=== PATIENT | female | born 2000 | race Caucasian/White ===

== ENCOUNTER 2024-01-07 19:21 | Inpatient (IN) | payer MEDICAID ==
[~2024-01-07] VITALS: Ht 157.5 cm; Wt 51.7 kg
[2024-01-07 19:40] VITALS: BP_SYST 135; PULSE 130; RESP 16; TEMP 97.8; O2SAT 99
[2024-01-07] MEDS: NACL 0.9% 2,000 ML IV ONE (20:15)
[2024-01-07 20:53] LABS: BASOPHILS # (AUTO) 0.1 K/uL (0.0-0.2); BASOPHILS % (AUTO) 0.6 % (0.0-2.0); EOSINOPHILS % (AUTO) 0.2 % (0.0-4.0); HEMATOCRIT 39.6 % (36-48); HEMOGLOBIN 13.9 g/dL (12.0-16.0); LYMPHOCYTES # (AUTO) 1.3 K/uL (1.0-5.5); LYMPHOCYTES % (AUTO) 15.6 % (20.5-51.5); MEAN CORPUSCULAR HEMOGLOBIN 31 pg (27-31); MEAN CORPUSCULAR HGB CONC 35 % (32-36); MEAN CORPUSCULAR VOLUME 87 fL (79.0-98.0); MONOCYTES # (AUTO) 0.9 K/uL (0.0-1.0); MONOCYTES % (AUTO) 11.3 % (1.7-9.3); NEUTROPHILS % (AUTO) 72.3 % (40.0-70.0); PLATELET COUNT (AUTO) 343 K/uL (130-430); RED BLOOD CELL COUNT(AUTO) 4.55 MIL/uL (4.2-6.2); RED CELL DISTRIBUTION WIDTH 12.1 % (9.0-15.0); WHITE BLOOD COUNT (AUTO) 8.3 K/uL (4.8-10.8)
[2024-01-07 21:01] LABS: ALANINE AMINOTRANSFERASE 15 U/L (12-78); ALBUMIN 4.3 g/dL (3.4-4.8); ANION GAP 14 (5-15); ASPARTATE AMINOTRANSFERASE 23 U/L (10-37); CALCIUM 8.9 mg/dL (8.4-11.0); CARBON DIOXIDE 23 mmol/L (23-29); CHLORIDE 106 mmol/L (98-107); CREATININE 0.67 mg/dL (0.55-1.30); GFR AFRICAN AMERICAN 139 mL/min (>90); GFR NON AFRICAN-AMERICAN 115 mL/min (>90); GLUCOSE 100 mg/dL (74-106); POTASSIUM 3.8 mmol/L (3.5-5.1); SODIUM SERUM 143 mmol/L (136-145); TOTAL BILIRUBIN 0.6 mg/dL (0.0-1.0); TOTAL PROTEIN, SERUM 7.9 g/dL (6.4-8.3); UREA NITROGEN, BLOOD 14 mg/dL (8-21)
[2024-01-07 21:06] LABS: ACETAMINOPHEN < 1 ug/mL (1-30); BILIRUBIN,DIRECT 0.2 mg/dL (0.0-0.3); LIPASE 14 U/L (16-77); SALICYLATE 1 mg/dL (3-30)
[2024-01-07 21:07] LABS: ALCOHOL, BLOOD < 3 mg/dL (<10)
[2024-01-07 21:20] LABS: SERUM HCG (QUALITATIVE) NEGATIVE (NEGATIVE)
[2024-01-07] MEDS ORDERED: HYDROcodone/ACETAMIN 5-325 MG TAB (NORCO/ VICODIN) PO PRN (22:45)
[2024-01-07] MEDS ORDERED: ZOLPIDEM TARTRATE 5 MG TABLET PO PRN (22:45)
[2024-01-07] MEDS ORDERED: ONDANSETRON HCL 4 MG/2 ML VIAL IVP PRN (22:45)
[2024-01-07] MEDS: D5/0.45 NS 500 ML IV SCH (22:45)
[2024-01-07] MEDS: ONDANSETRON HCL 4 MG/2 ML VIAL IVP ONE (23:25)
[2024-01-08 01:37] LABS: BILIRUBIN,URINE 1+ (NEGATIVE); BLOOD, URINE 3+ (NEGATIVE); CLARITY/URINE SL CLOUDY (CLEAR); GLUCOSE,URINE NEGATIVE (NEGATIVE); KETONES,URINE 3+ (NEGATIVE); LEUKOCYTE ESTERASE ,URINE NEGATIVE (NEGATIVE); NITRITE, URINE NEGATIVE (NEGATIVE); PROTEIN URINE 1+ (NEGATIVE); UROBILINOGEN,URINE 0.2 (0.2-1.0)
[2024-01-08 01:40] LABS: BARBITURATE, URINE NEGATIVE (NEG <=200); BENZODIAZEPINE, URINE POSITIVE (NEG <=150)
[2024-01-08 01:41] LABS: CANNABINOID, URINE NEGATIVE (NEG <=50); COCAINE, URINE NEGATIVE (NEG <=150); METHAMPHETAMINES SCREEN,URINE NEGATIVE (NEG <=500); OPIATE, URINE NEGATIVE (NEG <=100); PHENCYCLIDINE SCREEN,URINE NEGATIVE (NEG <=25); UR TRICYCLIC ANTIDEPRESSANTS NEGATIVE (NEG <=300); URINE AMPHETAMINE NEGATIVE (NEG <=500); URINE METHADONE NEGATIVE (NEG <=200); URINE OXYCODONE SCREEN NEGATIVE (NEG <=100)
[2024-01-08 01:49] LABS: COLOR,URINE AMBER (YELLOW)
[2024-01-08] MEDS: METOPROLOL TARTRATE 25 MG TABLET PO ONE (01:49)
[2024-01-08 01:50] LABS: BACTERIA,URINE None Seen /HPF (None Seen); RBC,URINE >100 /HPF (0-3); WBC,URINE 0-3 /HPF (0-3)
[2024-01-08 08:44] LABS: BASOPHILS # (AUTO) 0.1 K/uL (0.0-0.2); BASOPHILS % (AUTO) 1.2 % (0.0-2.0); EOSINOPHILS # (AUTO) 0.1 K/uL (0.0-0.4); EOSINOPHILS % (AUTO) 1.6 % (0.0-4.0); HEMOGLOBIN 13.4 g/dL (12.0-16.0); LYMPHOCYTES # (AUTO) 1.6 K/uL (1.0-5.5); LYMPHOCYTES % (AUTO) 28.7 % (20.5-51.5); MEAN CORPUSCULAR HEMOGLOBIN 30 pg (27-31); MEAN CORPUSCULAR HGB CONC 34 % (32-36); MEAN CORPUSCULAR VOLUME 88 fL (79.0-98.0); MONOCYTES # (AUTO) 0.6 K/uL (0.0-1.0); MONOCYTES % (AUTO) 10.6 % (1.7-9.3); NEUTROPHILS # (AUTO) 3.3 K/uL (1.8-7.7); NEUTROPHILS % (AUTO) 57.9 % (40.0-70.0); PLATELET COUNT (AUTO) 336 K/uL (130-430); RED BLOOD CELL COUNT(AUTO) 4.44 MIL/uL (4.2-6.2); RED CELL DISTRIBUTION WIDTH 12.2 % (9.0-15.0); WHITE BLOOD COUNT (AUTO) 5.7 K/uL (4.8-10.8)
[2024-01-08] MEDS: LORazepam 2 MG/ML VIAL IVP PRN (08:51)
[2024-01-08 09:12] LABS: CALCIUM 8.1 mg/dL (8.4-11.0); CREATININE 0.69 mg/dL (0.55-1.30); POTASSIUM 3.4 mmol/L (3.5-5.1); THYROID STIMULATING HORMONE 1.34 uIu/mL (0.34-4.82)
[2024-01-08] MEDS ORDERED: OLAN10TA32 (09:57)
[2024-01-08] MEDS ORDERED: HYDR50CA5 (09:57)
[2024-01-08] MEDS ORDERED: ACET325C6 (09:57)
[2024-01-08] MEDS ORDERED: TRAZ50TA54 (09:57)
[2024-01-08] MEDS: METOPROLOL TARTRATE 5 MG/5 ML VIAL IVP PRN (10:05)
[2024-01-08] MEDS: NACL 0.9% 1,000 ML IV ONE (10:06)
[2024-01-08] MEDS ORDERED: KCL 20 mEq in 100 mL (PREMIX) 100 ML IV ONE (12:14)
[2024-01-08] MEDS: KCL 20 mEq in 100 mL (PREMIX) 100 ML IV ONE (12:17)
[2024-01-08 16:35] VITALS: BP_SYST 104; PULSE 101; RESP 16; TEMP 98.4; O2SAT 99
[2024-01-08 17:14] VITALS: BP_SYST 104; PULSE 101; RESP 16; TEMP 98.4
[2024-01-08 17:24] VITALS: O2SAT 99
[2024-01-08] MEDS: ACETAMINOPHEN 325 MG TABLET PO PRN (17:38)
[2024-01-08] MEDS: D5/0.45 NS 1,000 ML IV SCH (17:45)
[2024-01-08 20:00] VITALS: PULSE 100; RESP 18
[2024-01-08 22:00] VITALS: PULSE 87; RESP 18
[2024-01-09 08:23] VITALS: BP_SYST 127; PULSE 93; RESP 16; TEMP 99; O2SAT 96
[2024-01-09 10:50] VITALS: BP_SYST 98; PULSE 93; RESP 16; TEMP 99; O2SAT 88
== END 2024-01-09 11:50 | disposition home or self-care (01) | DRG 421 ==
LOC: SED 19:21 → SMU 22:35 → STU 01-08 16:24
PROVIDERS: ADMIT Internal Medicine; ATTEND Internal Medicine
DX: R62.7 Adult failure to thrive (principal); E87.6 Hypokalemia; R00.0 Tachycardia, unspecified; F32.A Depression, unspecified; F41.9 Anxiety disorder, unspecified; Z68.20 Body mass index [BMI] 20.0-20.9, adult; Z79.899 Other long term (current) drug therapy; Z88.8 Allergy status to other drugs, medicaments and biological substances; F19.90 Other psychoactive substance use, unspecified, uncomplicated
CPT/HCPCS: 36415; 80048; 80076; 80307; 81000; 81001; 81015; 82948; 83690; 84443; 84484; 84703; 85025; 87081; 93005; 93306; 99285; G0378; G0480; G0481; G0482; J2060; J3480; J3490